=== PATIENT | female | born 1990 | race Caucasian/White ===

== ENCOUNTER → 2019-07-29 13:07 | Outpatient (CLI) | payer OTHER, SELFPAY ==
--- NOTE | 2019-07-29 | DI.US.S_ITS ---
PROCEDURE: US OB <= 14 WEEKS FETUS INDICATIONS: INITIAL SIZING AND DATING OUTSIDE/PRIOR DATING DATA: Last menstrual period (LMP): 05/30/19. LMP-based estimated date of delivery (HIRA): 03/05/20. First dating scan (date and location): 07/29/19 Estimated date of delivery (HIRA) from first dating scan: 03/06/20. TECHNIQUE: Real-time scanning was performed of the fetus and maternal pelvic organs, with image documentation. Endovaginal scanning was also performed to better visualize the fetus and maternal ovaries. COMPARISON: None. FINDINGS: Embryo: Elwin-rump length measures 19 mm corresponding to 8 weeks 3 days. Embryonic heart rate measures 165 beats per minute. Measurement variability in dating: +/- 4 weeks by LMP, +/- 7 days by mean sac diameter (use before 6 weeks gestation if crown-rump length not able to be measured), +/- 5 days by crown-rump length (up to 8 weeks 6 days gestation), +/- 7 days by crown-rump length (up to 13 weeks 6 days gestation). Maternal organs: Ovaries are normal limits, with right corpus luteal cyst. Limited images through the kidneys demonstrate no hydronephrosis. IMPRESSION: 8 week 3 day single living IUP. Dictated by: Dar PUENTES Interpreted: Toyin Cummins MD on 07/29/2019 at 13:59 Approved by: Toyin Cummins M.D. on 07/29/2019 at 15:59
== END ==
PROVIDERS: PCP Family Medicine; Visit Provider Family Medicine
DX: Z34.91 Encounter for supervision of normal pregnancy, unspecified, first trimester (principal); Z3A.08 8 weeks gestation of pregnancy
CPT/HCPCS: 76801

== ENCOUNTER → 2019-10-20 09:55 | Outpatient (CLI) | payer OTHER, SELFPAY ==
--- NOTE | 2019-10-20 | DI.US.S_ITS ---
PROCEDURE: US OB >= 14 WEEKS FETUS INDICATIONS: 20 WEEK ANATOMICAL SURVEY OUTSIDE/PRIOR DATING DATA: Last menstrual period (LMP): 05/30/19. LMP-based estimated date of delivery (HIRA): 03/05/20. First dating scan (date and location): 07/29/19 Estimated date of delivery (HIRA) from first dating scan: 03/06/20. TECHNIQUE: Real-time scanning was performed of the fetus, with image documentation and biometric measurements. COMPARISON: [facility], OB <= 14 WEEKS FETUS, 07/29/2019, 13:24. FINDINGS: General: A single living intrauterine gestation is present. Presentation: Vertex. Placenta: Placental position is anterior, without previa. Amniotic fluid index: 9.0 cm, normal range is 5-24 cm. heart rate: 147 beats per minute. Maternal cervical canal: 4.4 cm long. Normal lower limit is 2.5 cm. biometrics: Biparietal diameter: 20 weeks Head circumference: 20 weeks 2 days Abdominal circumference: 19 weeks 1 day Femur length: 19 weeks 5 days Estimated gestational age from initial scan: 20 weeks 2 days Composite gestational age from present scan: 19 weeks 6 days Estimated weight and percentile: 290 g; 12 percentile Measurement variability for biometric dating: +/- 7 days from 14 weeks to 15 weeks 6 days gestation, +/- 10 days from 16 weeks to 21 weeks 6 days gestation, +/- 2 weeks from 22 weeks to 27 weeks 6 days gestation, +/- 3 weeks for 28 weeks gestation or later. weight reference: 4500 g or EFW >90/95% is considered macrosomia or large for gestational age. EFW <10% is small for gestational age. EFW 5% or less is considered intra-uterine growth restriction. Anatomic survey: Neuro: Ventricles are non-dilated at less than 10 mm. Cisterna magna is normal at 3-11 mm. Cerebellum is normal in size and morphology. Nuchal skin fold: Normal at less than 6 mm between 14-21 weeks gestational age. Face: Nose and lips, facial profile are normal. Spine: No evidence for spina bifida. Heart: 4-chambered heart is present, with normal ventricular outflow tracts. Solitary left ventricular intracardiac focus. Diaphragm: Diaphragm is intact. Stomach: Left-sided stomach is present. Kidneys: No hydronephrosis. Normal is less than 5 mm in 2nd trimester, less than 7 mm in 3rd trimester. Cord: 3-vessel cord has orthotopic insertion. Bladder: Normal in size. Extremities: All 4 extremities identified. IMPRESSION: 1. Single living IUP redemonstrated and interval growth is lower limits of normal. 2. Echogenic intracardiac focus: 1.4-1.8 fold likelihood of Down syndrome. If isolated finding, consider aneuploidy screening with cell-free DNA. If aneuploidy screen is negative, no further evaluation needed. Anatomic survey otherwise is normal. Dictated by: Dar Cage [facility] Interpreted: Khadijah Catalan MD on 10/21/2019 at 9:26 Approved by: Khadijah Catalan MD, PhD on 10/21/2019 at 13:57
== END ==
PROVIDERS: PCP Family Medicine; Visit Provider Family Medicine
DX: Z36.89 Encounter for other specified antenatal screening (principal); Z3A.19 19 weeks gestation of pregnancy
CPT/HCPCS: 76801; 76811

== ENCOUNTER → 2019-11-21 10:49 | Outpatient (CLI) | payer OTHER, SELFPAY ==
--- NOTE | 2019-11-21 | DI.US.S_ITS ---
PROCEDURE: US OB LIMITED INDICATIONS: ABN US FINDING ON SCREENING OUTSIDE/PRIOR DATING DATA: Last menstrual period (LMP): 05/30/19. LMP-based estimated date of delivery (HIRA): 03/05/20. First dating scan (date and location): 07/29/19 Estimated date of delivery (HIRA) from first dating scan: 03/06/20. TECHNIQUE: Real-time scanning was performed of the fetus, with image documentation and biometric measurements. COMPARISON: [facility], , OB >= 14 WEEKS FETUS, 10/20/2019, 10:18. FINDINGS: General: A single living intrauterine gestation is present. Presentation: Breech. Placenta: Placental position is anterior, without previa. Amniotic fluid index: 13.9 cm, normal range is 5-24 cm. heart rate: 150 beats per minute. Maternal cervical canal: 4.0 cm long. Normal lower limit is 2.5 cm. Estimated gestational age from initial scan: 24 weeks 6 days Other: Left ventricular intracardiac focus redemonstrated. IMPRESSION: Single living IUP redemonstrated as well as left ventricular intracardiac focus which has not significantly changed. Dictated by: Dar Cage [facility] Interpreted: Abdoul Johansen MD on 11/21/2019 at 14:35 Approved by: Abdoul Johansen M.D. on 11/21/2019 at 19:46
== END ==
PROVIDERS: PCP Family Medicine; Visit Provider Family Medicine
DX: O28.3 Abnormal ultrasonic finding on antenatal screening of mother (principal); Z3A.24 24 weeks gestation of pregnancy
CPT/HCPCS: 76815

== ENCOUNTER → 2020-02-11 16:43 | Outpatient (ROUT) | payer OTHER, SELFPAY | PROVIDERS: PCP Family Medicine; Visit Provider Family Medicine | DX: Z34.80 Encounter for supervision of other normal pregnancy, unspecified trimester (principal) | CPT/HCPCS: 87081 ==

== ENCOUNTER 2020-03-11 19:11 | Inpatient (IN) | payer OTHER, SELFPAY ==
[2020-03-11 20:48] LABS: Add Manual Diff / Slide Review NO; Basophils Absolute Auto 100 /uL (0-100); Basophils Percent Auto 0.7 % (0-2); Eosinophils Absolute Auto 100 /uL (0-450); Eosinophils Percent Auto 1.6 % (2-4); Hematocrit 34.6 % (36-46); Hemoglobin 11.4 g/dL (12.0-16.0); Lymphocytes Absolute Auto 1800 /uL (1100-4500); Lymphocytes Percent Auto 21.7 % (25-40); Mean Corpuscular Hemoglobin 30.1 PG (26-34); Mean Corpuscular Volume 91.1 fL (80-100); Monocytes Absolute Auto 700 /uL (0-900); Monocytes Percent Auto 7.8 % (3-14); Neutrophils Absolute Auto 5800 /uL (1500-7000); Neutrophils Percent Auto 68.2 % (50-75); Platelet Count 174 X10^3/uL (150-400); Red Cell Distribution Width 13.2 % (11.6-14.8); White Blood Cell Count 8.5 X10^3/uL (4.5-11.0)
[2020-03-11] MEDS: miSOPROStoL 25 MCG TABLET 50 MCG PO (20:50)
[2020-03-11 20:52] VITALS: BP 112/63
[2020-03-11] MEDS: ZOLPIDEM 5 MG TABLET PO (21:57)
[2020-03-12] MEDS: DINOPROSTONE VAG (CERVIDIL) 10 MG VAG (09:00)
[2020-03-12] MEDS: LACTATED RINGERS 1,000 ML 100 ML IV (09:04)
--- NOTE | 2020-03-12 13:48 | DI.US.S_ITS ---
PROCEDURE: US OB LIMITED INDICATIONS: LABOR INDUCTION; DEEPEST FLUID POCKET? OUTSIDE/PRIOR DATING DATA: Last menstrual period (LMP): 05/30/19. LMP-based estimated date of delivery (HIRA): 03/05/20. First dating scan (date and location): 07/29/19. Estimated date of delivery (HIRA) from first dating scan: 03/06/20. TECHNIQUE: Real-time scanning was performed of the fetus, with image documentation. Endovaginal scanning: Not needed COMPARISON: [facility], OB >= 14 WEEKS FETUS, 10/20/2019, 10:18. [facility], OB <= 14 WEEKS FETUS, 07/29/2019, 13:24. [facility], OB LIMITED, 11/21/2019, 11:03. FINDINGS: A single living intrauterine gestation is present. Presentation: Vertex. Placenta: Placental position is anterior, without previa. Amniotic fluid index: 8.5 cm, normal range is 5-24 cm. heart rate: 133 beats per minute. Maternal cervical canal: Not visible due to the vertex presentation. Estimated gestational age from initial scan: 40 weeks 6 days. IMPRESSION: Normal amniotic fluid volume, vertex presentation, viable intrauterine gestation with heart rate 133 beats per minute. Dictated by: Abdoul Johansen M.D. on 03/12/2020 at 14:56 Approved by: Abdoul Johansen M.D. on 03/12/2020 at 14:58
--- NOTE | 2020-03-12 18:18 | PM.OBPNLAB ---
Date/Time Date Patient Seen: 03/12/20 Time Patient Seen: 18:19 Pain Control Pain control: tolerating well Comments: Patient still undergoing cervical ripening. She received 1 Cytotec last night and Cervidil was placed at 9:00 a.m. this morning. She is having contractions currently but they are not painful. She is having contractions every 2-3 minutes. heart tracing baseline of 130s to 140s with moderate variability and accelerations. Category 1 tracing. There was some difficulty with Lynn external heart monitor and that it was not taking a baby but picking up mom and there was a lot of artifacts so she was switched to different monitor. There are no decelerations. GBS negative Rh positive 41 weeks gestation based on LMP and confirmed with a 8 week ultrasound cervical ripening for the above. Status status: Category l Heart Rate Baseline: 1 Monitor Accelerations: Present Monitor Decelerations: Absent Monitor Variability: Moderate Assessment and Plan Assessment: other Comments: 29-year-old at 41 weeks estimated gestational age here for cervical ripening. Will continue with Cervidil. We will remove the Cervidil at 9:00 p.m. if there is no cervical change or cervix is not favorable then we will discharge patient to home and will attempt cervical ripening next Sunday night with Pitocin Sunday. CARLEY today was 8 heart monitor shows a category 1 tracing sequential screen negative GBS negative glucose tolerance test 80 estimated weight is approximately 7 lb Rh positive mom
[2020-03-12] MEDS: ZOLPIDEM 5 MG TABLET 10 MG PO (21:44)
[2020-03-13] MEDS: OXYTOCIN PREMIX 30 UNIT/500 ML PLAST..BAG IV (05:07)
[2020-03-13] MEDS: LACTATED RINGERS 1,000 ML 100 ML IV ×2 (05:08→11:55)
[2020-03-13 07:52] VITALS: BP 100/66; PULSE 62; RESP 16; TEMP 36.5
--- NOTE | 2020-03-13 10:54 | PM.OBPNLAB ---
Date/Time Date Patient Seen: 03/13/20 Time Patient Seen: 10:54 Pain Control Pain control: tolerating well Pelvic Exam Dilation (cm): 3 Effacement (%): 85 station: -1 Amniotic membrane status: Ruptured Comments: 10:40 a.m. artificial rupture membranes showing clear fluid with some blood Contractions Contractions on admission: none Monitor mode: External Pitocin rate (mU/min): 13 Contraction frequency (min): 2 Contraction duration (min): 45 Contraction pattern: Regular Contraction phase: Resting Contraction intensity: Moderate Status status: Category l Heart Rate Baseline: 150 Monitor Accelerations: Present Monitor Decelerations: Periodic Monitor Variability: Moderate Assessment and Plan Assessment: induction ongoing Comments: 29-year-old at 41 and 1/7 weeks estimated gestational age here for induction due to postdates. Patient has had Cytotec x1 on 03/11/2020 and Cervidil on 03/12/2020 and Pitocin was begun at 5:00 a.m. today. Patient is making change. Artificial rupture membranes was done at 10:40 a.m. with patient 2-3 cm dilated 85% effaced a -1 to -2 station. Category 1 tracing. Previous baseline was 120s to 130s now in the 150s with moderate variability and accelerations. There have been occasional variable D cells and occasional late placed deceleration but good morphology. Overall this is a category 1 tracing. We are having difficulty when patient moves and is up and about with the Lynn we are not getting a good signal. Uterine contractions are regular every 2-3 and she is getting into a more regular pattern with the Pitocin. The GBS negative Rh positive Glucose tolerance test normal at 80 Status post Tdap and flu shot COVID-19 negative Unremarkable other than echogenic focus in heart noted on 20 week ultrasound. Sequential screen negative cystic fibrosis screen negative Epidural when uncomfortable
--- NOTE | 2020-03-13 18:19 | PM.OBPRVD ---
Labor & Delivery Delivery date: 03/13/20 Intrapartal events: None Cervical ripening method: per Cervidil protocol Delivery augmentation: rupture of membranes Delivery monitor: external FHT Route of delivery: Episiotomy description: None L&D Laceration Description: Labial Estimated blood loss (mL): 200 Anesthesia type: Epidural Complications: None Narrative: 29-year-old at 41-,1/7 weeks estimated gestational age based on an EDC of 03/05/2020 based on 8 week ultrasound and LMP. Cervical ripening and induction was done due to post dates status . was unremarkable and no complications of . Stage I lasted 8 hours Patient was brought to labor and delivery on the evening for . She was given 1 Cytotec for cervical ripening and she had regular contractions every 2 minutes. A 2nd Cytotec was not able to be given because of frequency of contractions. The following day she was shown to not be favorable and Cervidil was placed. Cervidil was removed the evening of 03/12/2020 and patient was allowed to sleep and she continued to have non painful contractions. Pitocin per protocol was started on 03/13/2028 5:00 a.m.. Patient was having regular contractions every 1-3 minutes. They were not super painful. Maximum Pitocin was 13 milliunits. Patient was found to be 2-3 cm 85% effaced and -2 station at approximately 10:30 a.m.. This was significant change from previous exams. Artificial rupture membranes was performed at 10:40 a.m.. There was a very small amount of clear fluid and patient continued to leak were copious amounts of clear fluid. Contractions be quickly became more painful once there was artificial rupture membranes. To the point that epidural was placed at 1:36 p.m.. Patient achieved good analgesia from epidural. Contractions and became more frequent every minute. There were some burial Patel decelerations with this. Therefore Pitocin was turned off. External tocometer in heart monitor were used throughout this stage. Patient was found to be 5-6 cm after epidural placed at approximately 2:30 p.m.. Patient was noted to be complete at 4:40 p.m. and +2 station. Patient was comfortable. heart tracing baseline was in the 120s to 130s through the majority of this stage. Shortly after rupture membranes a baseline did climb to 150s to 160s and then after epidural a decreased. There was occasional late place variable deceleration but good morphology in good variability within this. There is moderate variability throughout. There are accelerations with contractions. There were decelerations into the 90s with pushing that done showed quick recovery and shortly prior to delivery there was accelerations to the 170s 190s for approximately 3 minutes. Stage II lasted 22 minutes Patient did excellent job of bringing the baby down and baby was in TOBIN presentation as a anticipated. The head was delivered and then with some difficulty the anterior shoulder was delivered but we did not have to do any maneuvers other than more forcefully getting her legs back and then posterior shoulder delivered and then there was some difficulty getting her chest out and I had to put my fingers in her axilla and pulled the baby out. The baby was placed on mom's chest and was vigorous. Apgars were 8 at 1 minute and 9 at 5 minutes. There was terminal meconium. External tocometer showed good frequency of contractions every 2-3 minutes and external heart monitor showed baseline 1 teens to 120s with moderate variability and decelerations with pushing but quick recovery and 1. At 3 minutes of heart rate going to 170s to 190s shortly prior to delivery. Stage III is lasted 5 minutes resulted in the normal spontaneous vaginal delivery of an intact moderately calcified placenta with central cord insertion and a 3 vessel cord. The placenta and the amniotic sac were intact. There was 200 cc of blood loss. Pitocin was running after delivery of the placenta. There was a very superficial skid on the perineum but no perineal tears. No vaginal tears. No cervical tears. There was a superficial laceration bilateral of the skin in between the labia minora and majora right greater than left which were not bleeding and she previously torn the same place and this was not repaired as it was felt that this would cause more discomfort. At the time this dictation both mom and baby are in stable condition Plan for aftercare: Routine care GBS negative Rh positive Glucose tolerance test 80
--- NOTE | 2020-03-13 18:29 | PM.OBHP.1 ---
OB HPI History of Present Condition Chief complaint: observation of labor Narrative: Akilah Pierre is a 29 year old female at 41 weeks estimated gestational age with EDC of 03/05/2020 based on LMP and 8 week ultrasound presents to labor and delivery for scheduled cervical ripening with Cytotec and plan for induction in a.m.. Past medical history: Gastroesophageal reflux disease Reactive airway disease. Neck pain Current medications: Pepcid 20 mg twice daily, vitamins Allergies penicillin causes hives Past surgical history unremarkable Health-related behavior: Previous smoker but quit 5 years ago Does not use alcohol or drugs. Is active Social history patient is recently bought a home with her and 4-year-old daughter where she lives in [place]. Patient works at a local skilled care facility. Family history: No history of congenital defects or chromosomal abnormalities Past OB history: 1. 11/26/2015 at 41 and 5 7th weeks estimated gestational age normal spontaneous vaginal delivery after 12 hour labor at [facility]. Epidural. Viable female named the Isrrael weighing 7 lb 3.3 oz care was begun early on approximately 8 weeks gestation. Patient had a total of 15 visit. Patient gained approximately 30 lb. Sequential screen was done and was normal Cystic fibrosis screen was negative B positive, antibody screen negative, rubella immune, history of varicella vaccine, syphilis hepatitis B hepatitis C negative chlamydia gonorrhea HPV negative Pap normal maternal serum AFP negative GBS negative Flu shot 09/19/2019 Tetanus shot 12/22/2019 COVID-19 test 16019 negative Evaluation Evaluation Laboratory results: Laboratory Tests 03/11/20 03/11/20 20:30 20:30 WBC 8.5 RBC 3.80 L Hgb 11.4 L Hct 34.6 L MCV 91.1 MCH 30.1 MCHC 33.0 RDW 13.2 Plt Count 174 Neut % (Auto) 68.2 Lymph % (Auto) 21.7 L [place] % (Auto) 7.8 Eos % (Auto) 1.6 L Baso % (Auto) 0.7 Neut # (Auto) 5800 Lymph # (Auto) 1800 [place] # (Auto) 700 Eos # (Auto) 100 Baso # (Auto) 100 Blood Type B Positive Antibody Screen Negative [facility] Social History Smoking Status: Never smoker Meds Home Medications and Allergies Home Medications Medication Instructions Recorded Confirmed Type No Known Home Medications 03/11/20 03/11/20 History Allergies Allergy/AdvReac Type Severity Reaction Status Date / Time Penicillins [PENICILLINS] Allergy Severe HIVERS Verified 03/11/20 19:56 Review of Systems Review of Systems Narrative: Review of systems is negative Exam Narrative Exam Narrative: Patient is afebrile vital signs are stable. HEENT: Unremarkable Neck is supple without adenopathy Chest: Clear to auscultation without wheezes rhonchi or crackles Cor: Regular rate and rhythm without a murmur Abdomen: Positive bowel sounds, soft, nontender, nondistended, no hepatosplenomegaly. Gravid. Vertex. Estimated weight is 7-7 1/2 lb. BP spine and to the left Extremities: No edema, DTRs intact Cervix shows finger 10 50%, -3, midposition, medium consistency Objective Labs Result Diagrams: 03/11/20 20:30 Assessment and Plan Assessment and Plan Assessment and Plan narrative: 29-year-old at 41 weeks estimated gestational age here for cervical ripening and did not occur with 1 dose of Cytotec last night. Plan will do Cervidil and then depending on change will consider Pitocin induction in a.m.. Epidural when requested in active labor GBS negative Rh positive Glucose tolerance test 80 Sequential screen negative and cystic fibrosis screen negative A 20 week ultrasound showed echogenic focus in the left ventricle but no other abnormalities No other complications of Routine care Expectant management
[2020-03-13] MEDS: IBUPROFEN 600 MG TABLET PO (19:57)
[2020-03-14] MEDS: OXYCODONE/ACETAMINOPHEN 5/325 TABLET 1 TAB PO ×2 (01:38→08:30)
[2020-03-14] MEDS: IBUPROFEN 600 MG TABLET PO ×2 (05:37→11:53)
[2020-03-14] MEDS: PRENATAL VIT,CALC/IRON/FOLIC 1 TABLET 1 TAB PO (08:30)
[2020-03-14] MEDS: DOCUSATE 100 MG CAPSULE PO (08:30)
--- NOTE | 2020-03-14 14:44 | P.DS_ITS ---
Discharge Providers Provider Date of admission: 03/11/20 19:11 Discharge Date: 03/14/20 Primary care physician: Bita Oakley MD Consults: 03/14/20 18:16 Consult to Network Consultant Routine Comment: Discharge provider: Bita Oakley MD Summary Time Spent with Patient Time attestation: Total time spent providing and/or coordinating discharge services: 30 minutes Patient was admitted to the hospital on 03/11/2020 in the evening. Patient was admitted for cervical ripening. She then had normal spontaneous vaginal delivery on 03/13/2020 after 1 dose of Cytotec and then 1 dose of Cervidil and Pitocin. She had epidural. Fluid was clear. She was GBS negative. She is Rh positive. She has Coban negative. She was doing well without any problems and was discharged home on day 1. Follow-up with me in 2 weeks. Routine discharge instructions. Routine discussion regarding infection, bleeding, breast-feeding. Discussed pelvic rest. Discharge medications: vitamins, Motrin 600 p.o. t.i.d. with food. She will take her own at home. She will given MiraLax which works better for her. We will provide Percocet 20. Tablets. Discussed this can be constipating. Objective Labs Result Diagrams: 03/11/20 20:30 Exam Narrative Exam Narrative: Alert and oriented x3 Vital signs stable Chest: Clear to auscultation without wheezes rhonchi or crackles Cor: Regular rate and rhythm without murmur Abdomen: Positive bowel sounds, soft, nontender, nondistended, uterus is is firm and under the umbilicus and nontender Extremities no edema, DTRs intact Discharge Plan Discharge Plan Patient Disposition: Home Discharge orders & Medications Prescriptions: New oxycodone-acetaminophen 5-325 mg Tablet 1 tab PO Q4HR PRN (Reason: Pain, Moderate (4-6)) Qty: 20 RF: 0 No Action No Known Home Medications RF: 0 Follow up/Referrals: Bita Oakley MD [Primary Care Provider] - Discharge Data Primary Care Provider: Bita Oakley Attending Provider: Bita Oakley Admit Date/Time: 03/11/20 19:11
== END 2020-03-14 15:30 | disposition home or self-care (01) | DRG 807 ==
PROVIDERS: Admitting Provider Family Medicine; PCP Family Medicine; Referring Provider Family Medicine; Visit Provider Family Medicine
DX: O48.0 Post-term pregnancy (principal); Z37.0 Single live birth; Z3A.41 41 weeks gestation of pregnancy; O77.0 Labor and delivery complicated by meconium in amniotic fluid; Z03.818 Encounter for observation for suspected exposure to other biological agents ruled out
CPT/HCPCS: 01967; 59050; 59200; 76815; 85025; 86850; 86900; 86901; G0378; G0379; J2405; J2590